=== PATIENT | female | born 1960 | race Caucasian/White ===

== ENCOUNTER → 2020-01-19 | Outpatient (CLI) | payer OTHER ==
[2016-04-07 19:20] VITALS: BP 117/78
[~2020-01-19] MED LIST: ACET500T33 PO; CALC-584 PO; OMEG1CAP6 PO; SIMV20TA18 PO
--- NOTE | 2020-01-19 16:30 | RAD ---
VENOUS LOWER EXTREMITY LEFT History: Reason: / Spl. Instructions: / History: Pain. Comparison: None. Discussion: Multiple longitudinal and transverse high resolution real-time images of the venous system of left lower extremity were obtained with color and Doppler sampling. The common femoral, superficial femoral, popliteal and proximal calf veins are all patent and demonstrate normal flow and compressibility. Normal respiratory phasicity and augmentation is present. Impression: 1. No evidence of deep vein thrombosis. Electronically signed by: Marco Antonio Rubalcava DO (01/19/2020 4:26 PM) [id number]
== END | disposition home or self-care (01) ==
LOC: US 15:37
PROVIDERS: ATTEND Preventive Medicine Occupational Medicine
DX: S86.812A Strain of other muscle(s) and tendon(s) at lower leg level, left leg, initial encounter (principal); R22.42 Localized swelling, mass and lump, left lower limb; X58.XXXA Exposure to other specified factors, initial encounter; Y93.89 Activity, other specified; Y92.89 Other specified places as the place of occurrence of the external cause; Y99.8 Other external cause status
CPT/HCPCS: 93971